=== PATIENT | female | born 1960 | race African-American/Black ===

== ENCOUNTER 2022-03-16 19:46 | Emergency (ER) | payer MEDICAID ==
[~2022-03-16] VITALS: Ht 162.6 cm; Wt 68.0 kg
[2022-03-16 20:01] VITALS: BP 190/101
[2022-03-16 21:24] LABS: BASOPHILS % 0.8 % (0.0-2.0); EOSINOPHILS % 0.2 % (0.0-5.0); HEMATOCRIT. 36.8 % (36.0-48.0); LYMPHOCYTES % 62.4 % (20.0-50.0); MEAN CORPUSCULAR HEMOGLOBIN 29.7 pg (28.0-32.0); MEAN CORPUSCULAR VOLUME 91.6 fL (81.0-99.0); MEAN PLATELET VOLUME 6.6 fl (7.4-10.4); MONOCYTES % 7.6 % (2.0-8.0); PLATELET 288 x1000/uL (130-400); RED BLOOD CELL COUNT 4.02 mill/uL (4.2-5.4); RED CELL DISTRIBUTION WIDTH 19.6 % (11.6-14.6)
[2022-03-16 21:26] LABS: CHLORIDE 105 mEq/L (98-107)
[2022-03-16 21:54] LABS: ETHANOL BLOOD 351 mg/dL
[2022-03-16] MEDS ORDERED: CLONIDINE 0.2MG TABLET PO ONE (22:00)
[2022-03-17] MEDS ORDERED: CLONIDINE 0.2MG TABLET PO NR (02:15)
== END 2022-03-17 04:57 | disposition home or self-care (01) ==
LOC: ER 19:46
DX: F10.129 Alcohol abuse with intoxication, unspecified (principal); Y90.8 Blood alcohol level of 240 mg/100 ml or more; I10 Essential (primary) hypertension; Z98.890 Other specified postprocedural states
CPT/HCPCS: 36415; 80053; 80307; 80320; 80329; 85025; 99283; G0480